=== PATIENT | female | born 1980 | race Caucasian/White ===

== ENCOUNTER 2017-01-01 13:20 | Inpatient (IN) | payer OTHER ==
[~2017-01-01] VITALS: Ht 149.9 cm; Wt 69.4 kg
[~2017-01-01 13:20] MED LIST: MACROBID 100 M100 MG PO
[2017-01-01] MEDS ORDERED: PRENATAL TABLE1 EAC2 PO (15:08)
[2017-01-01 15:20] LABS: ABSOLUTE BASOPHIL COUNT 0 /CUMM (0.0-0.2); ABSOLUTE EOSINOPHIL COUNT 0 /CUMM (0.0-0.7); ABSOLUTE GRANULOCYTE CT 11.1 /CUMM (1.4-6.5); ABSOLUTE LYMPH COUNT 1.6 /CUMM (1.2-3.4); ABSOLUTE MONOCYTE COUNT 0.8 /CUMM (0.10-0.60); BASOPHIL % 0.3 % (0.0-2.0); EOSINOPHIL % 0.1 % (0-5); GRANULOCYTE % 82.2 % (42.2-75.2); HEMATOCRIT 36.1 % (37-47); MEAN CORPUSCULAR HGB 31.4 PG (27.0-31.0); MEAN CORPUSCULAR HGB CONC 34.6 G/DL (33.0-37.0); MEAN CORPUSCULAR VOLUME 90.7 FL (81.0-99.0); PLATELET COUNT 115 /CUMM (130-400); RBC DISTRIBUTION WIDTH 13.3 % (11.5-14.5); RED BLOOD CELL CT 3.98 /CUMM (4.20-5.40); WHITE BLOOD CELL COUNT 13.6 /CUMM (4.8-10.8)
--- NOTE | 2017-01-01 17:09 | Labor & Delivery Summary ---
Delivery Summary Section: Section: primary Indication: high risk shoulder dystocia screen Placenta: Placenta: normal, 3 vessel, manual Anesthesia: spinal Baby's Weight: 8-14 Apgars - 1 Min: 9 Apgars - 5 Min: 9
--- NOTE | 2017-01-01 17:23 | History & Physical Pre-Op ---
General Information and HPI History of Present Illness: 36yo lmp 04/04/16 EDC 01/09/17 at 38w5d in active labor. [facility] shoulder screen is high risk and pt desires elective c section. care complete and unremarkable. Allergies/Medications Allergies: Coded Allergies: No Known Allergies (01/01/17) Home Med list Vit No.130/Iron/FA ( Tablet) 27 MG IRON-800 MCG TABLET 1 TAB PO DAILY (Reported) Past History Medical History Renal: polycystic kidney disease Surgical History Pertinent Surgical History: N Past Family/Social History Psychosocial History Smoking Status: Never Smoked Review of Systems Review of Systems Constitutional: Reports: no symptoms. EENTM: Reports: no symptoms. Cardiovascular: Reports: no symptoms. Respiratory: Reports: no symptoms. GI: Reports: no symptoms. Genitourinary: Reports: no symptoms. Musculoskeletal: Reports: no symptoms. Skin: Reports: no symptoms. Neurological/Psychological: Reports: no symptoms. Hematologic/Endocrine: Reports: no symptoms. Immunologic/Allergic: Reports: no symptoms. All Other Systems: Reviewed and Negative Exam & Diagnostic Data Last 24 Hrs of Vital Signs/I&O vss Intake & Output 01/01 1600 01/01 0800 01/01 0000 Intake Total Output Total Balance Patient 153 lb Weight Physical Exam: HEENT: NCAT Chest: CTA CV: nl S1S2 Abd: gravid, cephalic Ext: no c/c/e Assessment/Plan Assessment/Plan: 39 week labor macrosomia LTCS As Ranked By This Provider Problem List: 1. Macrosomia affecting management of mother
[2017-01-02 09:45] LABS: ABSOLUTE BASOPHIL COUNT 0 /CUMM (0.0-0.2); ABSOLUTE EOSINOPHIL COUNT 0 /CUMM (0.0-0.7); ABSOLUTE GRANULOCYTE CT 9.5 /CUMM (1.4-6.5); ABSOLUTE LYMPH COUNT 1.1 /CUMM (1.2-3.4); ABSOLUTE MONOCYTE COUNT 0.6 /CUMM (0.10-0.60); BASOPHIL % 0.2 % (0.0-2.0); EOSINOPHIL % 0.1 % (0-5); HEMATOCRIT 34.3 % (37-47); MEAN CORPUSCULAR HGB 31.3 PG (27.0-31.0); MEAN CORPUSCULAR HGB CONC 34.1 G/DL (33.0-37.0); MEAN CORPUSCULAR VOLUME 91.8 FL (81.0-99.0); MEAN PLATELET VOLUME 11.5 FL (7.4-10.4); RBC DISTRIBUTION WIDTH 13.2 % (11.5-14.5); RED BLOOD CELL CT 3.73 /CUMM (4.20-5.40); WHITE BLOOD CELL COUNT 11.2 /CUMM (4.8-10.8)
[2017-01-02 10:58] LABS: GRANULOCYTE % 84.8 % (42.2-75.2)
[2017-01-02 10:59] LABS: PLATELET COUNT 106 /CUMM (130-400)
--- NOTE | 2017-01-02 12:52 | Operative Report ---
Operative/Inv Procedure Report Surgery Date: 01/01/17 Name of Procedure: Primary section Pre-Operative Diagnosis: Macrosomia, high risk [facility] shoulder dystocia screen Post-Operative Diagnosis: Same Estimated Blood Loss: 600 Surgeon/Skip Pit Worker: SANDRA MORSE MD,JOHN Cam M.D. Anesthesia: spinal Operative/Procedure Note Note: The patient was brought to the operating room placed on the OR table in the sitting position where she underwent spinal anesthetic without complication. She was repositioned into dorsal supine with a block under her right. Venodyne boots were placed and activated. Alvarado catheter was inserted and drained clear yellow urine the abdomen was then prepped and draped in usual sterile fashion and tested. A Pfannenstiel skin incision was made with the scalpel this was taken down to the layer of fascia. The fascia was nicked in the midline and the rectus muscles are in the middle the peritoneal cavity was entered sharply. A bladder flap was created using Metzenbaum scissors. A low transverse uterine incision was made with the scalpel and a liveborn male infant was delivered atraumatically and handed off to the waiting contracts director. Placenta was then manually removed. The uterus is exteriorized and wiped clean with a wet lap sponge. Was closed in 2 layers of 0 Polysorb the second imbricating the first. The abdomen and pelvis were copiously irrigated. And the uterus was placed back into the abdominal cavity and the suture line was once again visualized and noted to be hemostatic. Peritoneal tissues were reapproximated using 2-0 Polysorb in a running nonlocking fashion. Rectus muscles were reapproximated with 0 dropped the suture. Fascia was closed using 0 Polysorb in a running nonlocking fashion. Subcutaneous tissues were irrigated and coagulated were needed. Skin was closed using alexia. Dry sterile dressing was applied to the wound patient was sent to recovery in good condition. All needle, sponge, and management counts were correct at the end of the procedure 4.
--- NOTE | 2017-01-02 12:54 | PN- Post Delivery/GYN ---
Subjective Subjective: Doing well, denies flatus Review of Systems: Negative Objective Last 24 Hrs of Vital Signs/I&O Vital signs stable afebrile Physical Exam: Fundus firm Incision clean dry and intact External is nontender Assessment/Plan Assessment/Plan Status post primary postop day 1 doing well Discontinue Alvarado, increase diet, increase activity Problem List: 1. Macrosomia affecting management of mother
--- NOTE | 2017-01-03 15:56 | Cons- Psychiatry ---
Psychiatric Consult Date of Consult: 01/03/17 Reason for Consult: "Poor, maternal attachment" Dr. Pulliam History of Present Illness: Identifying Info: 36-year-old female presents to on 01/01/2017 for an elective . Per staff report was uncomplicated. CC: "I have a lot of pain and nausea." HPI: This is the patient's first child and a planned . Staff reports that the patient has had a flat affect since procedure. She's been primarily staying in bed and has not been reacting to the baby in a way that is typical of new mothers based on their clinical experience. Additionally the patient's father spoke to staff privately expressing concern that he did not feel the patient was bonding well with the baby. PMH: Please see the H&P for a complete listing Past Psych History: Patient denies Family Psych History: Patient denies Substance History Patient denies Family Substance History: Patient denies Social: Patient is 5 years and has been with her significant other for 15 years. She is a lifelong resident of [place] and currently works in [employer]. Has a bachelor's degree. She plans on taking a week maternity leave and then returning to work a few days a week. Abuse/Trauma: Unobtained Current Home Psychotropic Medications: None Current Hospital Psychotropic Medications: None Allergies: Coded Allergies: No Known Allergies (01/01/17) Current Medications: Current Medications Sig/Kristie Start time Last Medication Dose Route Stop Time Status Admin Bisacodyl 5 MG DAILY NEEDED 01/03 1554 AC 01/02 PO 8 Bisacodyl 5 MG DAILY 01/02 1554 DC PO Diphenhydramine HCl 50 MG Q6P PRN 01/01 1700 AC IM Docusate Sodium 100 MG AT BEDTIME PRN 01/01 1700 AC PO Ibuprofen 800 MG .STK-MED ONE 01/03 0412 DC PO 01/03 0413 Ibuprofen 800 MG .STK-MED ONE 01/02 2203 DC PO 01/02 2204 Ibuprofen 800 MG .STK-MED ONE 01/02 1534 DC PO 01/02 1535 Ibuprofen 800 MG Q6P PRN 01/01 1700 AC 01/03 PO 1102 Ketorolac 30 MG Q6P PRN 01/01 1700 DC 01/02 Tromethamine IV 01/02 1659 0357 Lactated Ringer's 1,000 ML Q8H 01/01 1700 DC / IV 0107 Magnesium Hydroxide 30 ML .STK-MED ONE 01/02 1600 DC PO 01/02 1601 Magnesium Hydroxide 30 ML DAILY NEEDED PRN 01/01 1700 AC 05/10 PO 1607 Methylergonovine 200 MCG Q6H 01/02 0400 DC / Maleate PO 1102 Oxycodone/ 1 TAB Q4P PRN 01/01 1700 AC 11 Acetaminophen PO 1102 Oxycodone/ 2 TAB Q4P PRN 01/01 1700 AC Acetaminophen PO Simethicone 80 MG Q6P PRN 01/02 1600 AC 01/02 PO 1606 Past History Past Medical History Renal: polycystic kidney disease Past Surgical History Surgical History: none Psychosocial History Strengths/Capabilities: Strong family and social support Physical Limitations (Interventions): Pain Psychiatric Treatment History Psych Treatment Psychiatric Treatment No Diagnosis: No previous diagnoses Risk Factors: Substance Use/Abuse History Drug Use/Abuse Substances Used/Abused No Substance Abuse Treatment Substance Abuse Treatment Past Substance Abuse [place] No Assessment/Plan Mental Status Mental Status Exam: Presentation/Appearance: Calm. Cooperative with evaluation. Appears fatigues. Well groomed. Pt is lying in bed holding baby appropriately. Stroking face and hair. Orientation: Grossly oriented Sensorium: Awake and alert Eye contact: Appropriate Affect: Full range, congruent with stated mood, smiles and laughs appropriately Mood: Euthymic Depression: Denies Anxiety: Denies Thought Content: - Denies SI/HI, AH/VH, PI. States and also believes they will not kill themselves. - Denies Hopeless/Helpless Thoughts - Denies any thoughts of harming child. States and also believes she will not harm child. - Denies any intrusive thoughts Thought Process: Linear Associations: Appropriate Speech: Normal tone, rate, and prosody Judgment: Intact Insight: Intact Cognition: Memory: Grossly intact Attention/Concentration: Grossly intact Brief ROS Gait: Unobserved Sleep: Poor in hospital Energy: Fatigued IADLs/ADLs: With assist Patient states that she has been experiencing frustration due to pain nausea and fatigue. She has had difficulty with the baby cluster feeding and has felt uncomfortable because the baby was latching all the time. She is experienced additional frustration because she hasn't been able to lift the child. She states she enjoyed being and cried tears of emerita during the . She feels excited to bring the baby home to introduce to family. She is able to verbalize appropriately what help seeking behaviors she would engage in if she were to start having changes in mood or experiencing any thoughts of harming herself or the child. She does not feel her attachment or bonding has been impeded. She reports she has a strong family support system that lives locally as well as a strong social support system. States and also believes she would reach out to family if she were having difficulties. Lab Results: Laboratory Tests 01/02/17 0915: CBC w Diff NO MAN DIFF REQ, RBC 3.73 L, MCV 91.8, MCH 31.3 H, RDW 13.2, MPV 11.5 H, Gran % 84.8 H, Lymphocytes % 9.5 L, Monocytes % 5.4, Eosinophils % 0.1, Basophils % 0.2, Absolute Granulocytes 9.5 H, Absolute Lymphocytes 1.1 L, Absolute Monocytes 0.6, Absolute Eosinophils 0, Absolute Basophils 0, PUBS MCHC 34.1 01/01/17 1700: Urinalysis MOD H, Urine Color YEL, Urine Clarity HAZY H, Urine pH 6.0, Ur Specific [place] 1.020, Urine Protein NEG, Urine Ketones >=80, Urine Nitrite NEG , Urine Bilirubin NEG, Urine Urobilinogen 0.2, Ur Leukocyte Esterase NEG, Ur Microscopic SEDIMENT EXAMINED, Urine RBC 10-15 H, Urine WBC 1-3 H, Ur Epithelial Cells FEW, Urine Mucus FEW, Urine Hemoglobin MOD H, Urine Glucose NEG 01/01/17 1500: CBC w Diff NO MAN DIFF REQ, RBC 3.98 L, MCV 90.7, MCH 31.4 H, RDW 13.3, MPV 11.0 H, Gran % 82.2 H, Lymphocytes % 11.7 L, Monocytes % 5.7, Eosinophils % 0.1, Basophils % 0.3, Absolute Granulocytes 11.1 H, Absolute Lymphocytes 1.6, Absolute Monocytes 0.8 H, Absolute Eosinophils 0, Absolute Basophils 0, PUBS MCHC 34.6 Microbiology 01/01 1550 URINE ROUT: Urine Culture - COMP Diffential Diagnosis: Rule out depressive disorder with onset Impression: 36-year-old female presents for scheduled of her first child completing a planned . staff and family observed what they felt was atypical attachment as well as symptoms of low mood in the patient including flat affect and not leaving bed. On interview today the patient appears improved from previous observations. She does not present pose a threat to her child or herself. However, given her early frustrations with feeding she attributes to pain nausea and fatigue she may be at risk for issues with bonding and attachment in the future. She is able to verbalize safety plan in case of alterations in mood or dangerous thoughts in the future. Provisional Treatment Plan: 1. Please include details regarding following resources in the patient's discharge instructions: - National Depression Hotline: 3-747-IMC-MOMS - If you are experiencing thoughts of harming herself or your child call [phone], or go to the nearest emergency department - If you're interested in mental health at [facility] please call [phone] to schedule an intake appointment -[facility] Fourth Trimester Support Group:Monthly support group. Mothers Celia Rosales Holder, Facilitated by Kaila Melton ([phone]) [email or web address] - Moms Of Newborns of Support Group Tuesdays, [facility] [address] Please call Deanna at ([phone] Ext. [phone]) - New Moms Support Group An 8-session psychoeducational and support group for mothers of infants.[place], [place] Facilitated by Christianne Garcia [facility], ([phone]) [email or web address] 2. At present the patient denies any mood disturbance and no threat patient for child is evident. Additionally she is able to verbalize adequate safety plan if issues emerge. She is cleared psychiatrically for discharge to follow-up with her regular provider in 2 weeks. Thank you for including psychiatry in this case we are signing off, if you have any additional concerns or questions please page [phone].
[2017-01-03] MEDS ORDERED: SIMETHICONE80 M1 PO (21:08)
[2017-01-03] MEDS ORDERED: DOCUSATE SODIU100 M3 PO (21:08)
[2017-01-03] MEDS ORDERED: IBUPROFEN800 M1 PO (21:08)
[2017-01-03] MEDS ORDERED: PERCOCET 5-3251 EACH PO (21:08)
== END 2017-01-04 11:07 | DRG 765 ==
LOC: CBCO 13:20 → GNO 14:59 → CBCO 01-09 08:00
PROVIDERS: ADMIT Obstetrics & Gynecology
PROC: 10D00Z1 Extraction of Products of Conception, Low, Open Approach (ICD-10-PCS; principal; 2017-01-01)
DX: O36.63X0 Maternal care for excessive fetal growth, third trimester, not applicable or unspecified (principal); Q61.3 Polycystic kidney, unspecified; Z3A.38 38 weeks gestation of pregnancy; Z37.0 Single live birth
CPT/HCPCS: GNOS; 36415; 81001; 87086; J0690; J1885; J2210; J7120